=== PATIENT | male | born 1980 | race African-American/Black ===

== ENCOUNTER 2018-11-02 11:06 | Emergency (ER) | payer OTHER, SELFPAY | END 2018-11-02 11:24 | disposition home or self-care (01) | LOC: NAV ERS 11:06 | DX: M77.9 Enthesopathy, unspecified (principal); F41.9 Anxiety disorder, unspecified; F32.9 Major depressive disorder, single episode, unspecified; F17.210 Nicotine dependence, cigarettes, uncomplicated | CPT/HCPCS: 99283 ==